=== PATIENT | male | born 1960 | race African-American/Black ===

== ENCOUNTER 2016-11-14 05:45 | Observation (INO) | payer MEDICARE, OTHER ==
[2016-11-13 20:40] LABS: HEMATOCRIT 41.6 % (40.0-51.0); HEMOGLOBIN 13.7 g/dL (13.6-17.8)
[2016-11-13 20:47] LABS: BUN (BLOOD UREA NITROGEN) 6 MG/DL (6-23); CALCIUM, SERUM 9.4 MG/DL (8.5-10.4); CHLORIDE, SERUM 105 MMOL/L (96-112); CO2 (CARBON DIOXIDE) 27 MMOL/L (24-34); GFR AFRICAN AMERICAN 97 ML/MIN (>=60); GFR NON AFRICAN AMERICAN 84 ML/MIN (>=60); POTASSIUM, SERUM 4.5 MMOL/L (3.5-5.3); SODIUM, SERUM 137 MMOL/L (135-148)
[2016-11-13 20:48] LABS: GLUCOSE, SERUM 119 MG/DL (60-99)
--- NOTE | ~2016-11-14 | OP ---
Record Of Operation [facility] [address] [place]. [address] NAME: ZAC BARTON : 60 STATUS : ADM Elif PAT#: [id number] AGE: 56 ADM/REG DATE : 11/14/16 MR#: [id number] REPORT SERV DATE: 11/16/16 DICTATED BY: MARIBEL MARTELL II DATE: 11/16/16 REPORT STATUS : Draft TRANSCRIBED BY: MODMau DATE: 11/16/16 DATE OF PROCEDURE: PREOPERATIVE DIAGNOSES: 1. Bilateral upper extremity radiculopathy. 2. Multilevel stenosis and spondylosis, cervical. POSTOPERATIVE DIAGNOSES: 1. Bilateral upper extremity radiculopathy. 2. Multilevel stenosis and spondylosis, cervical. PROCEDURE: 1. C4-5, C5-6, C6-7 anterior interbody arthrodesis. 2. Application of prosthetic devices, C4-5, C5-6, C6-7. 3. Anterior instrumentation, C4-7 (four segments). 4. Use of the bone marrow aspirate and use of allograft substitute. 5. Use of the microscope. SURGEON: Maribel Martell M.D. FLUIDS: 1500 mL LR. ESTIMATED BLOOD LOSS: 40 mL. DRAINS: One drain. COMPLICATIONS: None. ANTIBIOTIC: Preoperatively. PREOPERATIVE HISTORY: This is a gentleman who reports significant neck pain, worse with extension and rotation. He describes the pain to me as radiating into the periscapular region and radiating into the posterior aspect of the bilateral upper extremities. We discussed the pros and cons of surgery. He and I discussed the merits of surgery in hopes of decreasing neck pain and arm complaints respectively. Again, we discussed the outcomes of the surgery in terms of being able to help the neck pain and the arm pain. We also discussed the potential failure of the surgery to do so. DESCRIPTION OF PROCEDURE: After informed consent was obtained, the patient was brought to the operating room at his request and general anesthesia achieved. He was placed in the supine position, and the neck was prepped and draped in a sterile fashion. A 5 mL of bone marrow were aspirated followed by a right-sided longitudinal incision. The interval was explored. The deep cervical fascia incised. The subperiosteal exposure was completed from C4-7. The belt maker retractors were then placed underneath the longus colli muscles. The Ellis pins were now placed from C4-7. Record Of Operation [facility] [address] [place]. [address] NAME: ZAC BARTON : 60 STATUS : ADM Elif PAT#: [id number] AGE: 56 ADM/REG DATE : 11/14/16 MR#: [id number] REPORT SERV DATE: 11/16/16 DICTATED BY: MARIBEL MARTELL II DATE: 11/16/16 REPORT STATUS : Draft TRANSCRIBED BY: MODL DATE: 11/16/16 The microscope was now brought into place, and under microscopic visualization, the C4-5 disk was now incised and the diskectomy completed with the pituitary rongeurs, Kerrison rongeurs, and the curettes. The endplates were denuded of their cartilage with the high- speed bur and the Kerrison rongeurs and the curettes. The posterior vertebral body osteophytes were now removed and the posterior longitudinal ligament removed to decompress the spinal cord and exiting nerve roots. Next, the prosthetic device was then trialed and placed at C4-5. This contained allograft substitute and bone marrow aspirate. Next, the C5-6 level was addressed in a similar manner. The disk was removed followed by endplate preparation. Once again, the posterior vertebral body osteophytes were removed and the posterior longitudinal ligament removed. The prosthetic device was then placed at C5-6 following adequate foraminal and central decompression. Lastly, the C6-7 level was addressed. The disk was removed and endplates prepared with the high-speed bur and the curettes. The ligament was removed, and the central canal and foraminal zones well decompressed. Next, the prosthetic device was then placed at C6-7. Next, the Ellis pins were removed and the separate plate and screw construct chosen and placed from C4-C7. The screws were then placed in the vertebral body of C4, C5, C6, and C7. Again, please note, this was a separate plate and screw construct. Multiplanar imaging confirmed acceptable placement of the implants. The deep drain was placed secondary to mild cancellous bone bleeding and standard closure performed, and the patient was then extubated and transferred to PACU in stable condition. Postoperative plan will be for observation as well as hopeful pain control. He has been on pain medications, so we will need to carefully treat him postoperatively with pain medications. AdrianJ/MÓNICAL Maribel Martell II, M.D. / [id number] CC: Sid Gallardo II, MD
[~2016-11-14 05:45] MED LIST: OPANA ER15 MG PO; ZESTRIL10 MG PO
[2016-11-16] MEDS ORDERED: V5 PO (07:54)
[2016-11-16] MEDS ORDERED: MSCONTIN PO (07:54)
== END 2016-11-16 14:34 | disposition home or self-care (01) ==
LOC: SDC/OF 05:45 → PACU 10:08 → 3SO 11:51
PROVIDERS: Orthopaedic Surgery
PROC: 0RG2070 Fusion of 2 or more Cervical Vertebral Joints with Autologous Tissue Substitute, Anterior Approach, Anterior Column, Open Approach (ICD-10-PCS; 2016-11-14)
PROC: 079T3ZX Drainage of Bone Marrow, Percutaneous Approach, Diagnostic (ICD-10-PCS; principal; 2016-11-14 07:00)
PROC: 0RG20A0 Fusion of 2 or more Cervical Vertebral Joints with Interbody Fusion Device, Anterior Approach, Anterior Column, Open Approach (ICD-10-PCS; 2016-11-14 07:00)
DX: M48.02 Spinal stenosis, cervical region (principal); M47.22 Other spondylosis with radiculopathy, cervical region; I10 Essential (primary) hypertension; M79.7 Fibromyalgia; M19.90 Unspecified osteoarthritis, unspecified site; F17.210 Nicotine dependence, cigarettes, uncomplicated; F12.90 Cannabis use, unspecified, uncomplicated; H40.9 Unspecified glaucoma; Z90.89 Acquired absence of other organs; Z98.890 Other specified postprocedural states; Z79.899 Other long term (current) drug therapy
CPT/HCPCS: 80048; 82962; 85014; 85018; 87641; 88304; 88311; 93005; 96374; 96375; 96376; A9270-GY; C1713; G0378; J0690; J1170; J2250; J2370; J2405; J2710; J3010